=== PATIENT | male | born 1960 | race Caucasian/White ===

== ENCOUNTER 2017-10-09 09:13 | Emergency (ER) | payer OTHER ==
[~2017-10-09] VITALS: Ht 180.3 cm; Wt 117.9 kg
[2017-10-09 09:13] VITALS: BP 132/79
== END 2017-10-09 10:02 | disposition home or self-care (01) ==
LOC: ER 09:15
DX: M54.42 Lumbago with sciatica, left side (principal)
CPT/HCPCS: 99283; A4606; Z7610